=== PATIENT | female | born 2000 | race Caucasian/White ===

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

== ENCOUNTER 2022-03-15 01:44 | Emergency (ER) | payer MEDICAID, SELFPAY ==
[2022-03-15 02:01] VITALS: BP 107/66; PULSE 99; RESP 17; TEMP 38.3; O2SAT 96; BMI 24.3
--- NOTE | 2022-03-15 02:08 | ED_ITS ---
HPI - Fever General: Chief Complaint: Fever Stated Complaint: Fever\Headache\Pain Middle Back Time Seen by Provider: 03/15/22 02:09 History of Present Illness: 21-year-old female comes in today with complaints of fever starting this afternoon. Patient also reports headache and sore throat along with muscle aches. Patient appears unwell but not toxic. Patient appears in mild to moderate pain. Patient last taken some ibuprofen about 1-1/2 hours ago. Associated symptoms: Deny nausea or vomiting Review of Systems General: Reports: 10 or more systems reviewed and unremarkable except in HPI and below Const: Reports: fever(s) and body aches ENMT: Reports: throat pain Resp: Denies: dyspnea GI: Denies: nausea or vomiting PFSH ED PFSH: Social History Smoking and tobacco status: current every day smoker e-cigarettes E-Cigarette Details: vaporizer device Physical Exam Const: COMMON NORMALS: alert HENMT: COMMON NORMALS: normocephalic and TM's normal bilaterally HEAD & SCALP: normocephalic TYMPANIC MEMBRANE: TM's normal bilaterally THROAT: abnormal tonsil bilateral hypertrophy Neck/C-Spine: COMMON NORMALS: full ROM Resp: COMMON NORMALS: normal respiratory effort and clear to auscultation bilaterally AUSCULTATION: clear to auscultation bilaterally Cardio: COMMON NORMALS: regular rate RATE: regular rate Extremity: COMMON NORMALS: normal to inspection and no pedal edema Neuro: SENSORIUM/ORIENTATION: Yes alert Skin: COMMON NORMALS: no rashes or lesions noted GENERAL SKIN EXAM: no rashes or lesions noted Course Vital Signs: Vital signs: Vital Signs Temperature 101 F H 03/15/22 02:01 Pulse Rate 99 03/15/22 02:01 Respiratory Rate 16 03/15/22 03:10 Blood Pressure 107/66 03/15/22 02:01 Pulse Oximetry 96 03/15/22 02:01 MDM - Fever Medical Decision Making 21-year-old female comes in today with onset of illness this afternoon. Patient had fever with body aches sore throat and headache. Patient appears unwell but not toxic. Abdomen soft nontender. Lungs clear to auscultation. Posterior pharynx shows some erythema with tonsillar enlargement. Bilateral TMs are normal. Patient moves all extremities well. Vital signs are normal except for temperature of 101. Differential diagnosis includes viral syndrome, COVID-19, strep pharyngitis. COVID-19 test and strep test were both negative. Encourage plenty of fluids and acetaminophen and ibuprofen for pain and fever. Recom mended patient be off work for 5 days or at least fever free for 24 hours. Patient reported understanding agreed to plan. Lab Data Laboratory Results SARS-CoV-2 Ag (Rapid) Negative (Negative) 03/15/22 02:10 Group A Strep Rapid Negative (Negative) 03/15/22 02:10 Discharge Plan Discharge Patient Disposition: Home Clinical Impression: Viral infection Condition: Stable Prescriptions: No Action gentamicin 0.3 % (3 mg/gram) ointment 1 applic ophthalmic (eye) TID Qty: 3.5 0RF Discharge Orders: Discharge ED (Routine); Ordered 03/15/22 Ordered By: Billy Abarca Patient Instructions: Viral Syndrome (ED) Activity Restrictions/Additional Instructions: Home and rest. Drink plenty of fluids. Use acetaminophen and ibuprofen as needed for pain and fever. While running a fever is very important to stay well-hydrated. Follow-up with primary care for further instruction. Return to ER for new concerns. May return to work when fever free for 24 hours. Stand Alone Forms: Work/School Release Coding Level of Care Code ED Automobile Mechanic Helper for Rabia Fwjanel Exam Detailed
[2022-03-15] MEDS: acetaminophen 500 mg Tablet 1000 MG PO (02:10)
[2022-03-15 02:30] LABS: Rapid Strep A Test Negative (Negative)
[2022-03-15 02:41] LABS: SARS Covid-2 Antigen Negative (Negative)
[2022-03-15 03:10] VITALS: RESP 16
== END 2022-03-15 03:10 | disposition home or self-care (01) ==
PROVIDERS: Emergency Provider Nurse Practitioner Family
DX: B34.9 Viral infection, unspecified (principal); Z20.822 Contact with and (suspected) exposure to COVID-19; F17.290 Nicotine dependence, other tobacco product, uncomplicated
CPT/HCPCS: 87081; 87426; 87880; 99283

== ENCOUNTER 2022-08-01 09:19 | Outpatient (CLI) | payer OTHER, SELFPAY ==
--- NOTE | 2022-08-01 09:55 | XR_ITS ---
WS: [id number] EXAMINATION: XR knee RT 3V* [id number] REASON FOR EXAM: PAIN IN R KNEE COMPARISON: None available. ORDER DATE: 08/01/2022 9:59 AM FINDINGS: There is no sign of any acute osseous or articular abnormality. There are no specific soft tissue abn ormalities. XR/XR knee RT 3V* [id number] IMPRESSION: No acute abnormality
== END 2022-08-01 09:20 | disposition home or self-care (01) ==
PROVIDERS: PCP Family Medicine; Visit Provider Family Medicine
DX: M25.561 Pain in right knee (principal)
CPT/HCPCS: 73562

== ENCOUNTER 2022-08-05 19:37 | Emergency (ER) | payer OTHER, MEDICAID, SELFPAY ==
[2022-08-05 19:58] VITALS: BP 109/65; PULSE 75; RESP 18; TEMP 36.8; O2SAT 99; BMI 24.4
--- NOTE | 2022-08-05 20:48 | W.ED.EXTPRO ---
HPI - Extremity Problem General: Chief complaint: Extremity Injury, Lower Stated complaint: knee pain Time Seen by Provider: 08/05/22 20:14 History of Present Illness: Healthy 22-year-old patient. She injured her right knee a few days ago while working. 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 She presents in a sleeve and brace which she says helps to some degree. She was seen in urgent care, and by her PCP, and x-rays were negative. She presents tonight, because she squatted down again, and felt numbness and tingling below her knee and her leg and the top of her foot with increased pain to the knee. The numbness is improving currently, but she still having some pain. She was prescribed indomethacin at 1 point with some mild improvement. MD Complaint: joint swelling, joint pain and other Onset (ago): day(s) Pain Consistency: constant Location: right and lower extremity Quality: aching Relieving factors: medication and other Exacerbating factors: range of motion, weight bearing and walking Associated symptoms: Deny chest pain, fever(s), rash or short of breath Review of Systems Const: Denies: fever(s) Card: Denies: chest pain Resp: Denies: dyspnea Skin/Breast: Denies: rash PFSH ED PFSH: Social History Smoking and tobacco status: current every day smoker e-cigarettes E-Cigarette Details: vaporizer device Physical Exam HENMT: COMMON NORMALS: normocephalic and atraumatic HEAD & SCALP: normocephalic and atraumatic Eye: COMMON NORMALS: Equal, round and reactive pupils present and EOMs intact bilaterally PUPIL: Yes Equal, round and reactive pupils present Neck/C-Spine: GENERAL: Yes trachea midline Chest: CHEST: Yes Symmetrical chest wall rise Resp: COMMON NORMALS: normal respiratory effort, No use of accessory muscles and clear to auscultation bilaterally AUSCULTATION: clear to auscultation bilaterally Cardio: COMMON NORMALS: regular rate and regular rhythm RATE: regular rate RHYTHM: regular rhythm Extremity: NARRATIVE EXTREMITY EXAM: Exam of the right knee reveals a mild effusion. There is no lower extremity edema, redness, or warmth. There is tenderness to palpation over the patellar tendon, medial joint line. Laxity testing is guarded. There is 8 degrees of extension lag due to guarding. No deformity. Neuro: OTHER: Grossly intact to touch and proprioception distally to the right lower extremity. Psych: COMMON NORMALS: mental status grossly normal Skin: COMMON NORMALS: no rashes or lesions noted GENERAL SKIN EXAM: no rashes or lesions noted Course Vital Signs: Vital signs: Vital Signs Temperature 98.2 F 08/05/22 19:58 Pulse Rate 75 08/05/22 19:58 Respiratory Rate 16 08/05/22 20:58 Blood Pressure 109/65 08/05/22 19:58 Pulse Oximetry 99 08/05/22 19:58 MDM - Extremity (Nontraumatic) Medical Decision Making Reviewed x-rays which are negative. She has slight swelling on exam tonight, which may be responsible for the paresthesia. Her sensation is intact on skin testing. She will be prescribed steroids for the swelling and for the paresthesia which should help. She will be placed on lifting and squatting limitations until she can follow-up with her primary doctor. Case management can attempt to get her a physical therapy appointment which can help as well. Discharge Plan Discharge Patient Disposition: Home Clinical Impression: Effusion of knee joint right, Paresthesia Condition: Stable Prescriptions: New Medrol (Rip) 4 mg tablets,dose pack See Rx Instructions .ROUTE .COMPLEX Qty: 21 0RF Rx Instructions: orally per package directions No Action bupropion HCl [Wellbutrin XL] 150 mg tablet extended release 24 hr 150 mg PO QAM indomethacin 25 mg capsule 25 mg PO TID PRN (Reason: pain) Qty: 30 0RF Rx Instructions: administer with food or milk Discharge Orders: Discharge ED (Routine); Ordered 08/05/22 Ordered By: Cody Olivas Referrals: Mayra Proctor DO [Primary Care Provider] - 4-7 days Patient Instructions: Paresthesia (ED), Swollen Knee Joint (ED), Knee Pain (ED), Opioid Safety, Pain Management Activity Restrictions/Additional Instructions: The numbness and tingling you are experiencing is most likely from swelling to the knee joint. Medication should help with this. You may continue your anti-inflammatory medication as needed. Take this medication as directed. Ice your knee for the next 48 hours. Case management will attempt to make an appointment with physical therapy for you which you will need. Stand Alone Forms: Work/School Release Coding Level of Care Code ED Mobile Pet Groomer for Rabia Barros
[2022-08-05 20:58] VITALS: RESP 16
[2022-08-05] MEDS: oxyCODONE-APAP 5-325 mg Tablet 1 TAB PO (20:58)
[2022-08-05] MEDS: predniSONE 20 mg Tablet 40 MG PO (20:59)
--- NOTE | 2022-08-06 13:25 | DCPLANNER ---
base manager had message to refer patient to outpatient therapy. base manager faxed patients information to physical therapy. Clinic will review patients information and will call patient with appointment information.
== END 2022-08-05 21:21 | disposition home or self-care (01) ==
PROVIDERS: Emergency Provider Emergency Medicine; PCP Family Medicine
DX: M25.461 Effusion, right knee (principal); R20.2 Paresthesia of skin; F17.290 Nicotine dependence, other tobacco product, uncomplicated
CPT/HCPCS: 99283; J7512

== ENCOUNTER 2022-09-18 06:38 | Outpatient (CLI) | payer OTHER, MEDICAID, SELFPAY ==
--- NOTE | 2022-09-18 07:11 | MR_ITS ---
WS: [id number] MRI RIGHT KNEE HISTORY: CHRONIC R KNEE PAIN COMPARISON: None available. Anterior cruciate ligament: Intact. Posterior cruciate ligament: Intact. Medial collateral ligament: Intact. Posterior lateral corner structures: Intact. Medial menisci: Intact. Normal signal, size and shape. Lateral meniscus: Intact. Normal signal, size and shape. Extensor mechanism: Distal quadriceps tendon and patellar tendons are intact. Fluid and soft tissue: No joint effusion. No Baron's cyst. Osseous and articular structures: Patellofemoral compartment: Normal. Medial compartment: Normal. Lateral compartment: Normal. MR/MR knee RT wo con* [id number] IMPRESSION: Normal MRI RIGHT knee.
== END 2022-09-18 06:39 | disposition home or self-care (01) ==
LOC: RAD 06:39
PROVIDERS: PCP Family Medicine; Visit Provider Family Medicine
DX: M25.561 Pain in right knee (principal); G89.29 Other chronic pain
CPT/HCPCS: 73721

== ENCOUNTER 2022-12-10 12:25 | Emergency (ER) | payer OTHER, MEDICAID, SELFPAY ==
[2022-12-10 12:41] VITALS: BP 106/69; PULSE 55; RESP 18; TEMP 36.6; O2SAT 100; BMI 24.7
--- NOTE | 2022-12-10 13:23 | W.ED.ABDPA2 ---
HPI - Abdominal Pain General: Chief Complaint: Abdominal Pain Stated Complaint: lower abd pain Time Seen by Provider: 12/10/22 12:58 Source: patient Mode of arrival: ambulatory Limitations: no limitations History of Present Illness: Patient is a 22-year-old female presents to ED today with a complaint of lower pelvic pain and cramping. Patient states she started her menstrual cycle this morning and initially thought her symptoms could be related to menstrual cramps however the pain was more severe than previous menstrual cramping. She states she was at work when she became dizzy and a coworker told her she looked pale and needed to come to the ED for evaluation. She denies nausea, vomiting, changes in bowel movements. She has no urinary complaints at this time. No fevers. Denies chance of . She states menstrual cycle is not heavier than normal. No vaginal discharge, odor, new sexual partners, or concerns for STDs. MD elicited complaint: abdominal pain Pertinent past history: none Onset (ago): hour(s) Pain Consistency: constant Location: Pelvis Severity: moderate Quality: cramping Radiation: none Migration to: no migration Exacerbating factors: nothing Relieving factors: nothing Associated Symptoms: Reports no associated symptoms; Denies chills, diarrhea, dysuria, fever(s), hematuria, nausea and vomiting Related Data: Patient : No Review of Systems Const: Denies: fever(s), chills, body aches, fatigue or malaise Card: Denies: chest pain Resp: Denies: dyspnea GI: Denies: abdominal pain, nausea, vomiting or diarrhea : Reports: vaginal bleeding and pelvic pain; Denies: flank pain, difficulty voiding, dysuria, urinary frequency, hematuria, vaginal odor or vaginal discharge Musc: Denies: back pain Skin/Breast: Denies: rash Neuro: Reports: dizziness; Denies: headache(s), numbness in extremities, weakness in extremities or sensory changes PFSH ED PFSH: Social History Smoking and tobacco status: current every day smoker e-cigarettes E-Cigarette Details: vaporizer device Physical Exam Const: COMMON NORMALS: no acute distress, average body habitus, patient oriented x3, no limitations, healthy appearing, alert and well nourished ORIENTATION/CONSCIOUSNESS: Yes awake, Yes oriented to person, Yes oriented to place and Yes oriented to time Eye: GENERAL EYE: appearance normal, both eyes and all related structures Resp: COMMON NORMALS: normal respiratory effort and clear to auscultation bilaterally AUSCULTATION: clear to auscultation bilaterally Cardio: COMMON NORMALS: regular rate and regular rhythm RATE: regular rate RHYTHM: regular rhythm GI: COMMON NORMALS: Normal to inspection, nondistended, normoactive bowel sounds present, Soft to palpation, No hepatosplenomegaly present and no masses INSPECTION: Yes normal to inspection AUSCULTATION: Yes normoactive bowel sounds PALPATION: Yes Soft to palpation, Yes Tenderness to palpation present (GI) (lower pelvis ), No Guarding due to palpation present (GI), No Rigid due to palpation and Yes No hepatosplenomegaly present OTHER: defers pelvic exam; declined transvaginal US : COMMON NORMALS: Yes no CVA tenderness BLADDER/KIDNEY EXAM: Yes no CVA tenderness Back/Pelvis: COMMON NORMALS: no CVA tenderness, thoracic and lumbar spine normal to inspection, no thoracic nor lumbar tenderness and thoraco-lumbar ROM normal Extremity: COMMON NORMALS: normal to inspection GENERAL: Yes normal exam except as noted Neuro: BRIANNA COMA SCALE: document GCS findings Brianna coma scale eye opening: Spontaneous Brianna coma scale verbal response: Orientated [place] coma scale motor response: Obey commands Brianna coma scale total score: 15 COMMON NORMALS: patient oriented x3 SENSORIUM/ORIENTATION: Yes alert, Yes oriented to person, Yes oriented to place and Yes oriented to time Skin: COMMON NORMALS: no rashes or lesions noted GENERAL SKIN EXAM: no rashes or lesions noted Course Vital Signs: Vital signs: Vital Signs Temperature 98.7 F 12/10/22 15:41 Pulse Rate 66 12/10/22 15:41 Respiratory Rate 16 12/10/22 15:41 Blood Pressure 105/70 12/10/22 15:41 Pulse Oximetry 100 12/10/22 15:41 Oxygen Delivery Me thod Room Air 12/10/22 15:41 MDM - Abdominal Pain Medical Decision Making Patient clinically appears in no acute distress. Her vital signs are normal-pressure slightly low most likely physiologic given the patient is a young active appearing female. Her blood work is unremarkable. Patient has a nonsurgical exam. She declined a pelvic exam and denied transvaginal ultrasound. Transabdominal ultrasound revealed a normal uterus however neither ovary was identified. Patient states she feels better on reexamination. Recommend she keep a close observation of symptoms over the next 24 hours. Return ED precautions were discussed with patient verbalized understanding. Lab Data 12/10/22 14:29 12/10/22 14:29 Labs/Radiology: Radiology Impressions Pelvis Ultrasound 12/10/22 14:51 IMPRESSION: 1. Normal size uterus. 2. Neither ovary is identified. 3. Patient declined transvaginal imaging. Laboratory Results WBC 9.4 10^3/uL (4.5-13.0) 12/10/22 14: RBC 4.26 10^6/uL (4.1-5.3) 12/10/22 14: Hgb 12.5 g/dL (11.5-15.3) 12/10/22 14: Hct 37.7 % (37.0-47.0) 12/10/22 14: MCV 88.5 fl (81-99) 12/10/22 14: MCH 29.3 pg (28.0-34.0) 12/10/22 14: MCHC 33.2 g/dL (30.0-36.0) 12/10/22 14: RDW 12.1 % (12.1-15.1) 12/10/22 14: Plt Count 342 10^3/cmm (130-400) 12/10/22 14:29 MPV 8.8 fL (7.4-10.4) 12/10/22 14: Neut % (Auto) 89.9 % 12/10/22 14: Lymph % (Auto) 7.6 % 12/10/22 14:29 Coffey % (Auto) 1.9 % 12/10/22 14: Eos % (Auto) 0.0 % 12/10/22 14: Baso % (Auto) 0.3 % 12/10/22 14: Neut # (Auto) 8.48 10^3/uL (1.8-8.0) H 12/10/22 14:29 Lymph # (Auto) 0.7 10^3/uL (1.5-6.5) L 12/10/22 14: Coffey # (Auto) 0.2 10^3/uL (0.2-0.9) 12/10/22 14:29 Eos # (Auto) 0.0 10^3/uL (0.0-0.8) 12/10/22 14:29 Baso # (Auto) 0.0 10^3/uL (0.0-0.1) 12/10/22 14:29 Nucleated RBC % (auto) 0 % 12/10/22 14: Nucleated RBCs # 0.0 /100WBC 12/10/22 14:29 Sodium 135 mmol/L (136-145) L 12/10/22 14:29 Potassium 3.8 mmol/L (3.5-5.1) 12/10/22 14: Chloride 101 mmol/L (98-107) 12/10/22 14: Carbon Dioxide 22 mmol/L (22-29) 12/10/22 14: Anion Gap 15.8 (5-19) 12/10/22 14:29 BUN 11 mg/dL (6-20) 12/10/22 14: Creatinine 0.7 mg/dL (0.5-0.9) 12/10/22 14:29 GFR Calculation 106.7 mL/min (90-130) 12/10/22 14:29 Glucose 105 mg/dL (65-115) 12/10/22 14: Calculated Osmolality 280 mOsm/kg (285-295) L 12/10/22 14: Calcium 9.4 mg/dL (8.5-10.5) 12/10/22 14:29 Total Bilirubin 0.7 mg/dL (0.15-1.2) 12/10/22 14:29 AST 14 U/L (0-32) 12/10/22 14:29 ALT 8 U/L (0-33) 12/10/22 14:29 Alkaline Phosphatase 39 U/L (35-105) 12/10/22 14:29 Total Protein 7.7 g/dL (6.6-8.7) 12/10/22 14: Albumin 4.6 g/dL (3.5-5.2) 12/10/22 14: Globulin 3.1 g/dL (1.3-4.6) 12/10/22 14:29 HCG, Qual Negative (Negative) 12/10/22 14:29 Urine Color Yellow (Yellow) 12/10/22 13:31 Urine Appearance Clear (CLEAR) 12/10/22 13:31 Urine pH 5 (5-7) 12/10/22 13:31 Ur Specific [place] 1.030 (1.005-1.030) 12/10/22 13:31 Urine Protein 1+ (Negative) H 12/10/22 13:31 Urine Glucose (UA) Norm (Normal) 12/10/22 13:31 Urine Ketones 1+ (Negative) H 12/10/22 13:31 Urine Blood 2+ (Negative) H 12/10/22 13:31 Urine Nitrate Negative (Negative) 12/10/22 13:31 Urine Bilirubin 1+ (Negative) H 12/10/22 13:31 Urine Urobilinogen 1 mg/dL (Negative) H 12/10/22 13:31 Ur Leukocyte Esterase Trace (Negative) H 12/10/22 13:31 Urine RBC 0-4 /hpf (0-2) H 12/10/22 13:31 Urine WBC 0-4 /hpf (0-5) H 12/10/22 13:31 Ur Squamous Epith Cells None /hpf (0-5) 12/10/22 13:31 Amorphous Sediment 3+ /hpf 12/10/22 13:31 Urine Bacteria 1+ /hpf (NONE) H 12/10/22 13:31 Discharge Plan Discharge Patient Disposition: Home Clinical Impression: Pelvic pain Condition: Stable Prescriptions: No Action bupropion HCl [Wellbutrin XL] 150 mg tablet extended release 24 hr 150 mg PO QAM indomethacin 25 mg capsule 25 mg PO TID PRN (Reason: pain) Qty: 30 0RF Rx Instructions: administer with food or milk Medrol (Rip) 4 mg tablets,dose pack See Rx Instructions .ROUTE .COMPLEX Qty: 21 0RF Rx Instructions: orally per package directions Discharge Orders: Discharge ED (Routine); Ordered 12/10/22 Ordered By: Shira Qureshi Referrals: Mayra Proctor DO [Primary Care Provider] - Patient Instructions: Pelvic Pain Activity Restrictions/Additional Instructions: As we discussed monitor symptoms closely over the next 24 to 48 hours. You may return to the emergency department for worsening or severe abdominal/pelvic pain, severe vaginal bleeding, vaginal discharge, fevers, repetitive episodes of vomiting or diarrhea, generally feeling worse or unwell, or any other concerns you may have. I hope you begin to feel better soon. Coding Level of Care Code ED Paste Mixing Supervisor for Rabia Barros
[2022-12-10 14:06] LABS: Add Urine Microscopic? YES; Bilirubin Urine 1+ (Negative); Blood Urine 2+ (Negative); Glucose Urine UA Norm (Normal); Ketones Urine 1+ (Negative); Leukocyte Esterase Urine Trace (Negative); Nitrate Urine Negative (Negative); Protein Urine 1+ (Negative); Urine Appearance Clear (CLEAR); Urine Color Yellow (Yellow); Urobilinogen Urine 1 mg/dL (Negative); pH Urine 5 (5-7)
[2022-12-10 14:07] LABS: Add Urine Culture? No; Amorphous Sediment Urine 3+ /hpf; Bacteria Urine 1+ /hpf; RBC Urine 0-4 /hpf (0-2); WBC Urine 0-4 /hpf (0-5)
[2022-12-10 14:48] LABS: Basophils % 0.3 %; Hematocrit 37.7 % (37.0-47.0); Hemoglobin 12.5 g/dL (11.5-15.3); Lymphocytes # 0.7 10^3/uL (1.5-6.5); Lymphocytes % 7.6 %; Mean Corpuscular HGB Conc 33.2 g/dL (30.0-36.0); Mean Corpuscular Hemoglobin 29.3 pg (28.0-34.0); Mean Corpuscular Volume 88.5 fl (81-99); Mean Platelet Volume 8.8 fL (7.4-10.4); Monocytes # 0.2 10^3/uL (0.2-0.9); Monocytes % 1.9 %; Neutrophils # 8.48 10^3/uL (1.8-8.0); Neutrophils % 89.9 %; Nucleated Red Blood Cells % 0 %; Platelet Count 342 10^3/cmm (130-400); Red Blood Count 4.26 10^6/uL (4.1-5.3); Red Cell Distribution Width 12.1 % (12.1-15.1); White Blood Count 9.4 10^3/uL (4.5-13.0)
--- NOTE | 2022-12-10 14:51 | US_ITS ---
WS: [id number] US pelvic complete* [id number] HISTORY: pelvic pain, dizziness COMPARISON: None available. Uterus: 7.6 cm x 3.5 cm x 2.7 cm. Normal size anteverted uterus. No fibroid or mass. Uterus is midline. Endometrium: 0.6 cm. Normal. Neither ovary is identified. No adnexal masses. No free fluid. No free fluid in the cul-de-sac. US/US pelvic complete* [id number] IMPRESSION: 1. Normal size uterus. 2. Neither ovary is identified. 3. Patient declined transvaginal imaging.
[2022-12-10 14:56] LABS: HCG, Serum Qual Negative (Negative)
[2022-12-10 15:04] LABS: Alanine Aminotransferase 8 U/L (0-33); Albumin Level 4.6 g/dL (3.5-5.2); Alkaline Phosphatase 39 U/L (35-105); Anion Gap 15.8 (5-19); Aspartate Amino Transferase 14 U/L (0-32); Blood Urea Nitrogen 11 mg/dL (6-20); Calcium 9.4 mg/dL (8.5-10.5); Carbon Dioxide 22 mmol/L (22-29); Chloride 101 mmol/L (98-107); Globulin 3.1 g/dL (1.3-4.6); Glomerular Filtration Rate 106.7 mL/min (90-130); Glucose 105 mg/dL (65-115); Osmolality Calculated 280 mOsm/kg (285-295); Potassium 3.8 mmol/L (3.5-5.1); Sodium 135 mmol/L (136-145); Total Bilirubin 0.7 mg/dL (0.15-1.2); Total Protein 7.7 g/dL (6.6-8.7)
[2022-12-10 15:41] VITALS: BP 105/70; PULSE 66; RESP 16; TEMP 37.1; O2SAT 100
== END 2022-12-10 16:02 | disposition home or self-care (01) ==
PROVIDERS: Emergency Provider Physician Assistant; PCP Family Medicine
DX: R10.2 Pelvic and perineal pain (principal); F17.290 Nicotine dependence, other tobacco product, uncomplicated
CPT/HCPCS: 36415; 76856; 80053; 81001; 84703; 85025; 99284

== ENCOUNTER 2023-05-20 19:01 | Emergency (ER) | payer OTHER, MEDICAID, SELFPAY ==
[2023-05-20 19:04] VITALS: BP 119/81; PULSE 83; RESP 16; TEMP 36.6; O2SAT 100; BMI 25.4
--- NOTE | 2023-05-20 19:10 | ED_ITS ---
HPI - General Adult General: Chief complaint: General Medical Stated complaint: side pain sob Time Seen by Provider: 05/20/23 19:09 History of Present Illness: 23-year-old female comes in today for complaints of right rib pain. Patient endorses on Saturday she had a hard sneeze and since then has had right anterior radiating to the posterior right ribs. Patient appears nontoxic. Patient reports pain with movement and deep breath. Patient appears in mild to moderate pain. Review of Systems General: Reports: 10 or more systems reviewed and unremarkable except in HPI and below Musc: Reports: other (Right rib pain) [facility]LY [facility] ED PFSH: Medical History (Updated 05/20/23 @ 19:35 by KRISSY Pagan) Psychiatric care Social History Smoking and tobacco status: current every day smoker e-cigarettes E-Cigarette Details: vaporizer device Female Reproductive History: Date of last menstrual period: 05/03/23 Physical Exam Const: COMMON NORMALS: alert HENMT: COMMON NORMALS: normocephalic HEAD & SCALP: normocephalic Neck/C-Spine: COMMON NORMALS: full ROM Chest: CHEST: Yes tenderness (Right anterior lateral tenderness) Resp: COMMON NORMALS: normal respiratory effort GI: COMMON NORMALS: Soft to palpation PALPATION: Yes Soft to palpation Extremity: COMMON NORMALS: normal to inspection Neuro: SENSORIUM/ORIENTATION: Yes alert Skin: COMMON NORMALS: turgor normal GENERAL SKIN EXAM: turgor normal Course Vital Signs: Vital signs: Vital Signs Temperature 97.9 F 05/20/23 19:04 Pulse Rate 82 05/20/23 19:34 Respiratory Rate 14 05/20/23 19:34 Blood Pressure 133/76 05/20/23 19:34 Pulse Oximetry 100 05/20/23 19:34 Oxygen Delivery Me thod Room Air 05/20/23 19:34 MDM - General Adult Medical Decision Making 23-year-old female comes in today with complaints of right anterior lateral rib pain. On exam patient has tenderness in the right anterior ribs. Low normal lung sounds. Skin is warm and dry. Abdomen soft nontender. Patient moves all extremities well. Differential diagnosis includes fracture, muscle strain, costochondritis. X-ray noted no abnormality. Believe the patient probably has muscle strains contributing to costochondritis to the right ribs. Patient given a dose of Toradol IM and 1 hydrocodone tablet for pain. Patient be continued on ibuprofen 604 times a day for pain and inflammation and hydrocodone 1 tablet twice a day as needed for severe pain. Patient reported understanding of care plan and need for follow-up or return to the ER. Lab Data Radiology Impressions Ribs X-Ray 05/20/23 19:10 IMPRESSION: No acute findings. All radiology interpretation(s) finalized by discharge Discharge Plan Discharge Patient Disposition: Home Clinical Impression: Rib pain on right side Condition: Stable Prescriptions: New ibuprofen 600 mg tablet 600 mg PO Q6H PRN (Reason: pain) Qty: 60 0RF hydrocodone-acetaminophen 5-325 mg tablet 1 tab PO BID PRN (Reason: pain (scale score 7-10)) Qty: 6 0RF No Action bupropion HCl [Wellbutrin XL] 150 mg tablet extended release 24 hr 150 mg PO QAM Qty: 30 0RF fluoxetine [Prozac] 20 mg capsule 20 mg PO DAILY Qty: 30 2RF trazodone 50 mg tablet 100 mg PO .HS PRN (Reason: insomnia) Qty: 60 1RF Discharge Orders: Discharge ED (Routine); Ordered 05/20/23 Ordered By: Billy Abarca Referrals: Mayra Proctor DO [Primary Care Provider] - Patient Instructions: Costochondritis (ED), Opioid Safety Activity Restrictions/Additional Instructions: Activity as tolerated. Use ibuprofen 600 mg 1 tablet every 6 hours routinely for the next 5 days. Use hydrocodone 1 tablet twice a day as needed for severe pain. Do not use hydrocodone while operating equipment or driving as this may put yourself or others at harm. Use ice or heat for further pain relief. Gentle stretching and range of motion exercises. Drink plenty of water with fluids. Return to ED for worsening symptoms such as increased shortness of breath, fever greater than 100.4, or new concerns. Coding Level of Care Code ED Checkout Operator for Rabia Barros
--- NOTE | 2023-05-20 19:10 | XRR_ITS ---
PROCEDURE INFORMATION: Exam: XR Right Ribs with PA Chest Exam date and time: 05/20/2023 7:15 PM Age: 23 years old Clinical indication: Chest wall pain; Right; Additional info: Right rib pain after sneeze TECHNIQUE: Imaging protocol: Radiologic exam of the right ribs with PA chest. Views: 3 views COMPARISON: CR XR chest 1V portable [id number] 05/18/2021 3:41 PM FINDINGS: Lungs: Unremarkable. No consolidation. Pleural spaces: Unremarkable. No pleural effusion. No pneumothorax. Heart/Mediastinum: Unremarkable. No cardiomegaly. Bones/joints: Unremarkable. XR/XR ribs RT mn 3V w CXR1V [id number] IMPRESSION: No acute findings.
[2023-05-20 19:34] VITALS: BP 133/76; PULSE 82; RESP 14; O2SAT 100
[2023-05-20] MEDS: HYDROcodone-acetaminophen 5-325 mg Tablet 1 TAB PO (19:48)
[2023-05-20] MEDS: ketorolac 30 mg/mL INJ IM (19:49)
[2023-05-20 19:55] VITALS: BP 119/81; PULSE 85; O2SAT 100
== END 2023-05-20 19:52 | disposition home or self-care (01) ==
PROVIDERS: Emergency Provider Nurse Practitioner Family; PCP Family Medicine
DX: R07.89 Other chest pain (principal); F17.290 Nicotine dependence, other tobacco product, uncomplicated
CPT/HCPCS: 71101; 96372; 99284; J1885

== ENCOUNTER 2024-02-04 03:27 | Emergency (ER) | payer OTHER, MEDICAID, SELFPAY ==
[2024-02-04 03:45] VITALS: BP 127/91; PULSE 85; RESP 16; TEMP 36.6; O2SAT 98; BMI 30.7
--- NOTE | 2024-02-04 03:49 | W.ED.ABDPA2 ---
HPI - Abdominal Pain General: Chief Complaint: Abdominal Pain Stated Complaint: Right side/Back pain Time Seen by Provider: 02/04/24 03:31 History of Present Illness: Patient presents to the ER with complaints of right-sided abdominal pain and can radiates to the back. Patient says she has had this for several days. It does get better with ibuprofen but does not totally go away. When it is the worst it is sharp and stabbing otherwise is, dull and achy. Patient has had this once before but not quite this bad. Patient is never had any abdominal surgeries. Patient denies fever chills, nausea vomiting, diarrhea constipation, pain burning frequency with urination. Review of Systems General: Reports: 10 or more systems reviewed and unremarkable except in HPI and below PFSH ED PFSH: Medical History Psychiatric care Social History Smoking and tobacco/nicotine status: current every day tobacco/nicotine user e-cigarettes E-Cigarette Details: vaporizer device Physical Exam Const: COMMON NORMALS: no acute distress, average body habitus, patient oriented x3, no limitations, healthy appearing, alert and well nourished HENMT: COMMON NORMALS: normocephalic, atraumatic, hearing grossly normal bilaterally, external ears normal, Normal external nose present and moist oral mucous membranes HEAD & SCALP: normocephalic and atraumatic NOSE: Normal external nose present EXTERNAL EAR: Yes external ears normal Neck/C-Spine: COMMON NORMALS: no JVD Chest: COMMONS NORMALS: normal inspection of the chest and normal palpation of entire chest wall Resp: COMMON NORMALS: normal respiratory effort, No retractions, No use of accessory muscles and clear to auscultation bilaterally AUSCULTATION: clear to auscultation bilaterally Cardio: COMMON NORMALS: no JVD, regular rate, regular rhythm, S1 normal heart sound present, S2 normal heart sound present, No gallops present (Cardio), No clicks present (Cardio), No murmurs present (Cardio) and No rub (Cardio) RATE: regular rate RHYTHM: regular rhythm HEART SOUNDS: S1 normal heart sound present and S2 normal heart sound present GI: COMMON NORMALS: Normal to inspection, nondistended, normoactive bowel sounds present, Soft to palpation, No hepatosplenomegaly present and no masses; negative for non-tender (Pain with palpation over right sided abdomen and right lateral abdomen. Re) PALPATION: Yes Soft to palpation and Yes No hepatosplenomegaly present OTHER: Palpation of the abdomen reproduces the pain Neuro: COMMON NORMALS: patient oriented x3 SENSORIUM/ORIENTATION: Yes alert Course Vital Signs: Vital signs: Vital Signs Temperature 97.9 F 02/04/24 03:45 Pulse Rate 83 02/04/24 04:21 Respiratory Rate 16 02/04/24 04:21 Blood Pressure 127/91 02/04/24 04:21 Pulse Oximetry 98 02/04/24 04:21 Oxygen Delivery Me thod Room Air 02/04/24 03:45 MDM - Abdominal Pain Medical Decision Making Patient had lab work that included CBC CMP magnesium lipase and urinalysis. White blood cell count was mildly elevated at 13.7 urinalysis showed significant urinary tract infection. Patient received 30 mg Toradol and IV and this helped the pain. These results was discussed with the patient. Patient be given a dose of Cipro here and a prescription to go home on. Patient should follow-up with her PCP within the next 7 days. Differential Diagnosis Likely abdominal pain; Unlikely acute appendicitis, calculus of kidney, constipation, diverticulitis, endometriosis, gastroenteritis, pancreatitis or small bowel obstruction Medical Records I reviewed the patient's medical records. Lab Data I reviewed the patient's lab results. 02/04/24 04:04 02/04/24 04:04 Labs/Radiology: Laboratory Results WBC 13.70 10^3/uL (3.29-11.43) H 02/04/24 04:04 RBC 4.20 10^6/uL (3.85-5.65) 02/04/24 04:04 Hgb 12.30 g/dL (11.27-16.99) 02/04/24 04:04 Hct 37.7 % (36-47) 02/04/24 04:04 MCV 89.8 fl (85-98) 02/04/24 04:04 MCH 29.3 pg (27-33) 02/04/24 04:04 MCHC 32.6 g/dL (30-55) 02/04/24 04:04 RDW 12.3 % (12.1-15.1) 02/04/24 04:04 Plt Count 390 10^3/cmm (157-399) 02/04/24 04:04 MPV 9.0 fL (7.4-10.4) 02/04/24 04:04 Neut % (Auto) 76.1 % 02/04/24 04:04 Lymph % (Auto) 15.7 % 02/04/24 04:04 [place] % (Auto) 6.4 % 02/04/24 04:04 Eos % (Auto) 1.0 % 02/04/24 04:04 Baso % (Auto) 0.5 % 02/04/24 04:04 Neut # (Auto) 10.43 10^3/uL (1.8-7.7) H 02/04/24 04:04 Lymph # (Auto) 2.2 10^3/uL (0.8-4.8) 02/04/24 04:04 [place] # (Auto) 0.9 10^3/uL (0.2-0.9) 02/04/24 04:04 Eos # (Auto) 0.1 10^3/uL (0.0-0.8) 02/04/24 04:04 Baso # (Auto) 0.1 10^3/uL (0.0-0.1) 02/04/24 04:04 Nucleated RBC % (auto) 0 % 02/04/24 04:04 Nucleated RBCs # 0.0 /100WBC 02/04/24 04:04 Sodium 139 mmol/L (136-145) 02/04/24 04:04 Potassium 3.9 mmol/L (3.5-5.1) 02/04/24 04:04 Chloride 105 mmol/L (98-107) 02/04/24 04:04 Carbon Dioxide 23 mmol/L (22-29) 02/04/24 04:04 Anion Gap 14.9 (5-19) 02/04/24 04:04 BUN 14 mg/dL (6-20) 02/04/24 04:04 Creatinine 0.7 mg/dL (0.5-0.9) 02/04/24 04:04 GFR Calculation 105.6 mL/min (90-130) 02/04/24 04:04 Glucose 99 mg/dL (65-115) 02/04/24 04:04 Calculated Osmolality 289 mOsm/kg (285-295) 02/04/24 04:04 Calcium 8.9 mg/dL (8.5-10.5) 02/04/24 04:04 Magnesium 1.8 mg/dL (1.7-2.3) 02/04/24 04:04 Total Bilirubin 0.4 mg/dL (0.15-1.2) 02/04/24 04:04 AST 14 U/L (0-32) 02/04/24 04:04 ALT 9 U/L (0-33) 02/04/24 04:04 Alkaline Phosphatase 71 U/L (35-105) 02/04/24 04:04 Total Protein 7.7 g/dL (6.6-8.7) 02/04/24 04:04 Albumin 4.0 g/dL (3.5-5.2) 02/04/24 04:04 Globulin 3.7 g/dL (1.3-4.6) 02/04/24 04:04 Lipase 28 U/L (13-60) 02/04/24 04:04 HCG, Qual Negative (Negative) 02/04/24 04:10 Urine Color Yellow (Yellow) 02/04/24 04:10 Urine Appearance Turbid (CLEAR) A 02/04/24 04:10 Urine pH 6 (5-7) 02/04/24 04:10 Ur Specific [place] 1.010 (1.005-1.030) 02/04/24 04:10 Urine Protein Trace (Negative) 02/04/24 04:10 Urine Glucose (UA) Norm (Normal) 02/04/24 04:10 Urine Ketones Negative (Negative) 02/04/24 04:10 Urine Blood 3+ (Negative) H 02/04/24 04:10 Urine Nitrate Positive (Negative) H 02/04/24 04:10 Urine Bilirubin Neg (Negative) 02/04/24 04:10 Urine Urobilinogen Neg mg/dL (Negative) 02/04/24 04:10 Ur Leukocyte Esterase 2+ (Negative) H 02/04/24 04:10 Urine RBC 5-10 /hpf (0-2) H 02/04/24 04:10 Urine WBC 25-40 /hpf (0-5) H 02/04/24 04:10 Ur Squamous Epith Cells 0-4 /hpf (0-5) H 02/04/24 04:10 Amorphous Sediment Not Reportable 02/04/24 04:10 Urine Bacteria 3+ /hpf (NONE) H 02/04/24 04:10 Urine Mucus Trace /hpf 02/04/24 04:10 All radiology interpretation(s) finalized by discharge Discharge Plan Discharge Patient Disposition: Home Clinical Impression: Urinary tract infection Qualifiers: Urinary tract infection type: acute cystitis Hematuria presence: with hematuria Qualified Code(s): N30.01 - Acute cystitis with hematuria Condition: Stable Prescriptions: New ciprofloxacin HCl 500 mg tablet 500 mg PO Q12H Qty: 20 0RF No Action fluoxetine [Prozac] 20 mg capsule 20 mg PO DAILY Qty: 30 2RF trazodone 50 mg tablet 100 mg PO .HS PRN (Reason: insomnia) Qty: 60 1RF Discharge Orders: Discharge ED (Routine); Ordered 02/04/24 Ordered By: Mauri Her Referrals: Mayra Proctor DO [Primary Care Provider] - Patient Instructions: Urinary Tract Infection - Women Activity Restrictions/Additional Instructions: Urinalysis showed he had urinary tract infection. You are given Cipro here in the ER as an antibiotic and a prescription was sent to your pharmacy for another 7 days of treatment. Please take all of your medicine as directed. Please follow-up with your family practice physician within next 7 days for further evaluation and treatment as needed. Coding Level of Care Code ED Interventional Cardiologist for Rabia Barros
[2024-02-04] MEDS: ketorolac 30 mg/mL INJ IVP (04:06)
[2024-02-04] MEDS: ondansetron 2 mg/ML SDV 2 mL 4 MG IVP (04:06)
[2024-02-04 04:17] LABS: Basophils # 0.1 10^3/uL (0.0-0.1); Basophils % 0.5 %; Eosinophils # 0.1 10^3/uL (0.0-0.8); Hematocrit 37.7 % (36-47); Lymphocytes # 2.2 10^3/uL (0.8-4.8); Lymphocytes % 15.7 %; Mean Corpuscular HGB Conc 32.6 g/dL (30-55); Mean Corpuscular Hemoglobin 29.3 pg (27-33); Mean Corpuscular Volume 89.8 fl (85-98); Monocytes # 0.9 10^3/uL (0.2-0.9); Monocytes % 6.4 %; Neutrophils # 10.43 10^3/uL (1.8-7.7); Neutrophils % 76.1 %; Nucleated Red Blood Cells % 0 %; Platelet Count 390 10^3/cmm (157-399); Red Cell Distribution Width 12.3 % (12.1-15.1)
[2024-02-04 04:21] VITALS: BP 127/91; PULSE 83; RESP 16; O2SAT 98
[2024-02-04 04:22] LABS: HCG Qualitative Urine. Negative (Negative)
[2024-02-04 04:34] LABS: Add Urine Microscopic? YES; Bilirubin Urine Neg (Negative); Blood Urine 3+ (Negative); Glucose Urine UA Norm (Normal); Ketones Urine Negative (Negative); Leukocyte Esterase Urine 2+ (Negative); Nitrate Urine Positive (Negative); Protein Urine Trace (Negative); Urine Appearance Turbid (CLEAR); Urine Color Yellow (Yellow); Urobilinogen Urine Neg (Negative); pH Urine 6 (5-7)
[2024-02-04 04:35] LABS: Alanine Aminotransferase 9 U/L (0-33); Alkaline Phosphatase 71 U/L (35-105); Anion Gap 14.9 (5-19); Aspartate Amino Transferase 14 U/L (0-32); Blood Urea Nitrogen 14 mg/dL (6-20); Calcium 8.9 mg/dL (8.5-10.5); Carbon Dioxide 23 mmol/L (22-29); Chloride 105 mmol/L (98-107); Creatinine Clr Calc Pharmacy 145.5468; Globulin 3.7 g/dL (1.3-4.6); Glomerular Filtration Rate 105.6 mL/min (90-130); Glucose 99 mg/dL (65-115); Lipase 28 U/L (13-60); Magnesium 1.8 mg/dL (1.7-2.3); Osmolality Calculated 289 mOsm/kg (285-295); Potassium 3.9 mmol/L (3.5-5.1); Sodium 139 mmol/L (136-145); Total Bilirubin 0.4 mg/dL (0.15-1.2); Total Protein 7.7 g/dL (6.6-8.7)
[2024-02-04 04:35] LABS: Add Urine Culture? Yes; Bacteria Urine 3+ /hpf; Mucus Urine TRACE /hpf; Squamous Epithelial Cell Urine 0-4 /hpf (0-5); WBC Urine 25-40 /hpf (0-5)
[2024-02-04] MEDS: ciprofloxacin 500 mg Tablet PO (04:52)
[2024-02-04 05:16] VITALS: BP 127/91; PULSE 83; RESP 16; TEMP 36.6; O2SAT 98
== END 2024-02-04 04:55 | disposition home or self-care (01) ==
PROVIDERS: Emergency Provider Emergency Medicine; PCP Family Medicine
DX: N30.01 Acute cystitis with hematuria (principal); F17.290 Nicotine dependence, other tobacco product, uncomplicated
CPT/HCPCS: 80053; 81001; 81025; 83690; 83735; 85025; 87077; 87086; 87186; 96374; 96375; 99284; J1885; J2405